=== PATIENT | male | born 1985 | race Caucasian/White ===

== ENCOUNTER 2023-07-23 20:18 | Emergency (ER) | payer OTHER ==
--- NOTE | 2023-07-23 20:47 | ED ---
General Adult HPI - General Chief complaint: Urogenital Stated complaint: genital issue Time Seen by Provider: 07/23/23 20:31 Source: patient Mode of arrival: ambulatory Limitations: no limitations - History of Present Illness Initial comments: Dictation was produced using [employer] dictation software. please excuse any grammatical, word or spelling errors. Chief Complaint: 38-year-old male with left testicular pain History of Present Illness: Patient 38-year-old male presents with left testicular pain he was seen at the urgent care 2 days ago was given antibiotics for a bellybutton infection. States that today he was at work sitting down when all of a sudden he felt a sudden onset of left testicular pain. Patient denies any history of STDs. States that pain is a 6 out of 10. Denies any abdominal pain. No nausea or vomiting. States the pain radiates down his left leg. Initially thought that it was a side effect from the medication he is just already taking. The ROS documented in this emergency department record has been reviewed and confirmed by me. Those systems with pertinent positive or negative responses have been documented in the HPI. All other systems are other negative and/or noncontributory. - Related Data Allergies Allergy/AdvReac Type Severity Reaction Status Date / Time methylphenidate AdvReac Rash/Hives Verified 07/23/23 20:25 [From Ritalin] Review of Systems ROS Statement: Those systems with pertinent positive or pertinent negative responses have been documented in the HPI. ROS Other: All systems not noted in ROS Statement are negative. Past Medical History Past Medical History: No Reported History Past Surgical History: No Surgical Hx Reported Past Psychological History: No Psychological Hx Reported Smoking Status: Vaper Past Alcohol Use History: Daily Past Drug Use History: Marijuana General Exam - General Exam Comments Initial Comments: General: Well-appearing, nontoxic, no acute distress. Head: Normocephalic, atraumatic Eyes: PERRLA, EOMI ENT: Airway patent Chest: Nonlabored breathing Skin: No visual rash, normal skin tone Neuro: Alert and oriented 3 Musculoskeletal: No gross abnormalities General exam: Horizontal lie to the left testicle, palpable tenderness to the left testicle Limitations: no limitations Course Vital Signs 07/23/23 07/23/23 20:21 21:22 Temperature 98.1 F Pulse Rate 64 60 Respiratory 20 16 Rate Blood Pressure 150/92 136/86 O2 Sat by Pulse 100 99 Oximetry Medical Decision Making - Medical Decision Making Was pt. sent in by a medical professional or institution (MARIA L Frazier, COUPLER, urgent care, hospital, or senior living...) When possible be specific @ -No Did you speak to anyone other than the patient for history (EMS, parent, family, police, friend...)? What history was obtained from this source @ -No Did you review nursing and triage notes (agree or disagree)? Why? @ -I reviewed and agree with nursing and triage notes Were old charts reviewed (outside hosp., previous admission, EMS record, old EKG, old radiological studies, urgent care reports/EKG's, senior living records)? Report findings @ -No old charts were reviewed Differential Diagnosis (chest pain, altered mental status, abdominal pain women, abdominal pain men, vaginal bleeding, musculoskeletal, weakness, fever, dyspnea, syncope, headache, dizziness, GI bleed, back pain, seizure, CVA, palpatations, mental health)? @ -Epididymitis, testicular torsion, hydrocele EKG interpreted by me (3pts min.). @ -None done X-rays interpreted by me (1pt min.). @ -None done CT interpreted by me (1pt min.). @ -None done U/S interpreted by me (1pt. min.). @ -Ultrasound scrotum shows good blood flow to both testicles What testing was considered but not performed or refused? (CT, X-rays, U/S, labs)? Why? @ -None What meds were considered but not given or refused? Why? @ -None Did you discuss the management of the patient with other professionals (professionals i.e. MARIA L Frazier, COUPLER, lab, RT, psych nurse, adoption social worker, financial accounting analyst, teacher, admitting officer, welfare case worker)? Give summary @ -No Was smoking cessation discussed for >3mins.? @ -No Was critical care preformed (if so, how long)? @ -No Were there social determinants of health that impacted care today? How? (Homelessness, low income, unemployed, alcoholism, drug addiction, transportation, low edu. Level, literacy, decrease access to med. care, [facility], rehab)? @ -No Was there de-escalation of care discussed even if they declined (Discuss DNR or withdrawal of care, Hospice)? DNR status @ -No What co-morbidities impacted this encounter? (DM, HTN, Smoking, COPD, CAD, Cancer, CVA, ARF, Chemo, Hep., AIDS, mental health diagnosis, sleep apnea, morbid obesity)? @ -None Was patient admitted / discharged? Hospital course, mention meds given and route, prescriptions, significant lab abnormalities, going to OR and other pertinent info. @ -38-year-old male presents emergency department with several hours of left testicular pain. Vital signs stable. Ultrasound shows no testicular torsion. There does appear to be small hydrocele and varicocele on the left. Patient discharged advised follow-up with urologist. Undiagnosed new problem with uncertain prognosis? @ -No Drug Therapy requiring intensive monitoring for toxicity (Heparin, Nitro, Insulin, Cardizem)? @ -No Were any procedures done? @ -No Diagnosis/symptom? Acute, or Chronic, or Acute on Chronic? Uncomplicated (without systemic symptoms) or Complicated (systemic symptoms)? @ -Testicular pain Side effects of treatment? @ -No Exacerbation, Progression, or Severe Exacerbation? @ -No Poses a threat to life or bodily function? How? (Chest pain, [place], [place], pneumonia, PE, COPD, DKA, ARF, appy, cholecystitis, CVA, Diverticulitis, Homicidal, Suicidal, threat to staff... and all critical care pts) @ -No Disposition Clinical Impression: Testicular pain Disposition: HOME SELF-CARE Condition: Fair Instructions (If sedation given, give patient instructions): Testicle Pain (ED) Is patient prescribed a controlled substance at d/c from ED?: No Referrals: Jermaine Jenkins MD [STAFF PHYSICIAN] - 1-2 days Time of Disposition: 22:19
[2023-07-23 21:02] VITALS: TEMP 98.1
--- NOTE | 2023-07-23 21:43 | US ---
EXAMINATION TYPE: US scrotum with doppler. Grayscale and color Doppler Duplex imaging performed of ana fallon scrotum. DATE OF EXAM: 07/23/2023 COMPARISON: NONE CLINICAL INDICATION: Male, 38 years old with history of left testicular pain; Left testicular pain x 6 hours EXAM MEASUREMENTS: TESTICLES: Right Testicle: 4.8 x 3.2 x 2.4 cm Left Testicle: 4.4 x 3.0 x 2.7 cm EPIDIDYMIS HEAD: Right Epididymis: 0.9 cm Left Epididymis: 1.0 cm Doppler performed to assess for testicular vascularity; good bilateral Doppler perfusion and waveform s are demonstrated, with perhaps slightly greater perfusion on the left. There is no evidence of test icular torsion. Presence of hydroceles: Small on left. Presence of varicoceles: Small on left. IMPRESSION: Negative for testicular torsion.
[2023-07-23 21:53] VITALS: PULSE 60; RESP 16
[2023-07-23 22:51] LABS: Appearance,Urine Clear (Clear); Bilirubin,Urine Negative (Negative); Blood,Urine Negative (Negative); Color,Urine Colorless; Glucose,Urine (UA) Negative (Negative); Ketones,Urine Negative (Negative); Leukocyte Esterase,Urine Negative (Negative); Nitrite,Urine Negative (Negative); PH, Urine 6.5 (5.0-8.0); Protein,Urine Negative (Negative); Specific Gravity,Urine 1.005 (1.001-1.035); Urobilinogen,Urine <2.0 mg/dL (<2.0)
[2023-07-23 23:32] VITALS: BP 131/94
== END 2023-07-23 22:52 | disposition home or self-care (01) ==
LOC: EC 20:18
DX: N50.812 Left testicular pain (principal); N43.3 Hydrocele, unspecified; I86.1 Scrotal varices; F17.290 Nicotine dependence, other tobacco product, uncomplicated; F12.90 Cannabis use, unspecified, uncomplicated; Z88.8 Allergy status to other drugs, medicaments and biological substances
CPT/HCPCS: 76870; 81003; 93975; 99284

== ENCOUNTER 2023-11-27 23:41 | Emergency (ER) | payer OTHER ==
--- NOTE | 2023-11-28 00:42 | ED ---
General Adult HPI - General Chief complaint: GI Bleed Stated complaint: Blood in Stool,Near Syncope,Abd Pain Time Seen by Provider: 11/28/23 00:32 Source: patient Mode of arrival: ambulatory Limitations: no limitations - History of Present Illness Initial comments: Patient is a 38-year-old gentleman presenting today status post colonoscopy for bloody stools. Patient states that he had a colonoscopy done at [facility] this afternoon and upon arriving home had a large volume bloody stool with blood clots. He had 3 additional bloody stools but states by the fourth 1 he seem to be passing less blood. He was sitting at home and had a brief syncopal episode while seated, states that this has happened before when he is lost blood such as when he cut his hand. He currently denies any chest pain, shortness of breath lightheadedness or dizziness. Endorses lower abdominal pain as well as rectal pain. No history of easy bleeding or bruising. No fevers. During his colonoscopy today he did have a large polyp removed and a lymph node removed. - Related Data Allergies Allergy/AdvReac Type Severity Reaction Status Date / Time methylphenidate AdvReac Rash/Hives Verified 11/27/23 23:48 [From Ritalin] Review of Systems ROS Statement: Those systems with pertinent positive or pertinent negative responses have been documented in the HPI. ROS Other: All systems not noted in ROS Statement are negative. Constitutional: Denies: fever, chills Respiratory: Denies: dyspnea Cardiovascular: Reports: syncope. Denies: chest pain Gastrointestinal: Reports: abdominal pain, nausea, hematochezia. Denies: vomiting, diarrhea, constipation, hematemesis Neurological: Denies: headache, vertigo Hematological/Lymphatic: Denies: easy bleeding, easy bruising Past Medical History Past Medical History: No Reported History Additional Past Medical History / Comment(s): Mass and Polyp removed from colon 11-27-23. History of Any Multi-Drug Resistant Organisms: None Reported Past Surgical History: No Surgical Hx Reported Past Psychological History: No Psychological Hx Reported Smoking Status: Vaper Past Alcohol Use History: Daily Past Drug Use History: Marijuana General Exam - General Exam Comments Initial Comments: PE: CONSTITUTIONAL: No apparent distress, well appearing SKIN: Warm, dry, no jaundice, hives or petechiae; generalized pallor EYES: Pupils are equally round, extraocular movements intact without nystagmus, pale conjunctiva conjunctiva, non-icteric sclera HENT: Normocephalic, atraumatic, moist mucus membranes, oropharynx clear without exudates NECK: , Full range of motion, normal appearance PULMONARY: Clear to auscultation without wheezes, rhonchi, or rales, normal excursion, no accessory muscle use and no stridor CARDIOVASCULAR: Regular rate, rhythm, normal S1 and S2. No appreciated murmurs, rubs or gallops. Strong radial pulses with intact distal perfusion. No lower extremity edema GASTROINTESTINAL: Soft, non-tender, non-distended, no palpable masses, no rebound or guarding. No hepatosplenomegaly; rectal exam performed with DEBBIE Cruz at bedside, tenderness with digital rectal exam without fissures or active bleeding, small mount of dried blood around rectum GENITOURINARY: MUSCULOSKELETAL: Extremities have no gross deformity, no edema, redness, or swelling. No calf swelling NEUROLOGIC:_a/o x 3, GCS 15, normal mentation and speech. Moves all extremities x 4 without motor or sensory deficit PSYCHIATRIC:_normal mood and affect, thought process is clear and linear Limitations: no limitations Course Vital Signs 11/27/23 11/28/23 11/28/23 23:43 03:18 05:03 Temperature 97 F L 97.7 F Pulse Rate 57 L 84 57 L Respiratory 16 16 17 Rate Blood Pressure 128/68 104/67 122/78 O2 Sat by Pulse 100 96 99 Oximetry EKG Findings - EKG Comments: EKG Findings:: Sinus bradycardia, heart rate 58 bpm, VA interval 139 ms, QT/QTc 313/410 ms, normal axis, no ST elevations or depressions, no arrhythmia Medical Decision Making - Medical Decision Making Was pt. sent in by a medical professional or institution (, PA, SIX PACK PACKER, urgent care, hospital, or prison...) When possible be specific @ -No Did you speak to anyone other than the patient for history (EMS, parent, family, police, friend...)? What history was obtained from this source @ -No Did you review nursing and triage notes (agree or disagree)? Why? @ -I reviewed and agree with nursing and triage notes Were old charts reviewed (outside hosp., previous admission, EMS record, old EKG, old radiological studies, urgent care reports/EKG's, prison records)? Report findings @I did review patient's discharge summary from [facility], as well as report from his colonoscopy today which did show that patient had a large polyp removed from the distal colon 5 to 10 mm/centimeters from the anal verge and lymph node removal. Differential Diagnosis (chest pain, altered mental status, abdominal pain women, abdominal pain men, vaginal bleeding, weakness, fever, dyspnea, syncope, headache, dizziness, GI bleed, back pain, seizure, CVA, palpatations, mental health, musculoskeletal)? @ -Differential GI Bleed: Esophageal varices, aortoenteric fistula, Dary-Núñez, gastritis, peptic ulcer disease, diverticulosis, inflammatory bowel disease, hemorrhoids, fissure, colitis, malignancy, Meckel's diverticulum, this is not meant to be an all- inclusive list. EKG interpreted by me (3pts min.). @ -As above X-rays interpreted by me (1pt min.). @ -None done CT interpreted by me (1pt min.). @ -I reviewed patient CT abdomen I see no active contrast extravasation, free air or obstruction U/S interpreted by me (1pt. min.). @ -None done What testing was considered but not performed or refused? (CT, X-rays, U/S, labs)? Why? @ -None What meds were considered but not given or refused? Why? @ -None Did you discuss the management of the patient with other professionals (professionals i.e. , PA, SIX PACK PACKER, lab, RT, psych nurse, social media marketing manager, dye winch operator, teacher, geological technical officer, case briefer)? Give summary @ -No Was smoking cessation discussed for >3mins.? @ -No Was critical care preformed (if so, how long)? @ -No Were there social determinants of health that impacted care today? How? (Homelessness, low income, unemployed, alcoholism, drug addiction, transportation, low edu. Level, literacy, decrease access to med. care, longterm, rehab)? @ -No Was there de-escalation of care discussed even if they declined (Discuss DNR or withdrawal of care, Hospice)? @ -No What co-morbidities impacted this encounter? (DM, HTN, Smoking, COPD, CAD, Cancer, CVA, ARF, Chemo, Hep., AIDS, mental health diagnosis, sleep apnea, morb id obesity)? @ -None Was patient admitted / discharged? Hospital course, mention meds given and rout e, prescriptions, significant lab abnormalities, going to OR and other pertinent info. @ -Hospital course Diischarged- Patient is a pleasant 38-year-old gentleman presenting status post colonoscopy status post polypectomy and lymph node removal for 4 episodes bloody stool and lower abdominal pain as well as syncope. Pt somewhat pale and ill appearing however nontoxic on arrival. Conjucitval pallor noted. Soft and nontender abdomen with active bowel sounds. Rectal exam showed no active or brisk bleeding, no palpable masses, no anal fissures, performed with RN Anthony as solar pv installer. VSS, no tachycardia, hypoxia or hypotension. Plan for fluid resuscitation, type and cross, CBC, CMP, CT GI bleed study. Hgb 14.6. Labs otherwise significant for sodium 129. Pt recieved litre normal saline. I did update pt's mother to stable hgb and pending CT. Patient sleeping comfortably. Lactiic 2/[address] significant for "fluid and gas filled dilated large bowel loops, liquid stool is seen in the ascending colon, abnormal circumferential wall thickening of the distal sigmoid colon us seen with near complete luminal narrowing, since differential dx includes malignancy, follow up with colonoscopy recommended if clinically appropriate time. Abnormal trace free fluid in pelvis". Of note no f ree air. I suspect findings are chronic, as concern for malignancy was the cause of patient's colonoscopy today, however updated patient and mother to findings and discussed transfer for obs vs discharge. I discussed with the patient discharge home with strict return precautions and close follow up with his dry cell and battery assembler vs transfer to [facility] for observation given his recent procedure. Patient states he feels improved, has not had any bloody stools while here in the ED and wants to be discharged home. I feel this is reasonable given normal hgb and improvement of symptoms and patient has close follow up established and in place for this week. In my medical judgment there is currently no evidence of an immediate life- threatening or surgical condition. Discharge is therefore indicated at this time. Discharge treatment instructions, follow up instructions, and appropriate [facility] department return precautions were discussed with the patient and/or medical decision maker. Patient and/or medical decision maker expressed understanding of and agreed with the treatment plan, follow up instructions, and emergency department return precaution. All patient's and/or medical decision maker's questions were answered. The patient was advised that a small risk still exists that a serious condition could develop and was therefore instructed to return to the ED for any changes in symptoms, persistent symptoms, inability to obtain proper follow-up or for any further concerns. Patient received verbal and written instructions for this condition. Undiagnosed new problem with uncertain prognosis? @ -No Drug Therapy requiring intensive monitoring for toxicity (Heparin, Nitro, Insulin, Cardizem)? @ -No Were any procedures done? @ -No Diagnosis/symptom? @Hematochezia, hyponatremia Acute, or Chronic, or Acute on Chronic? @ -Acute Uncomplicated (without systemic symptoms) or Complicated (systemic symptoms)? @ -Complicated Side effects of treatment? @ -No Exacerbation, Progression, or Severe Exacerbation? @ -No Poses a threat to life or bodily function? How? (Chest pain, [place], [place], pneumonia, PE, COPD, DKA, ARF, appy, cholecystitis, CVA, Diverticulitis, Homicidal, Suicida l, threat to staff... and all critical care pts) @ -Potentially, however unlikely at time of discharge - Lab Data Result diagrams: 11/28/23 00:40 11/28/23 00:40 Lab Results 11/28/23 11/28/23 11/28/23 Range/Units 00:35 00:40 00:40 WBC 7.2 (3.8-10.6) k/uL RBC 4.61 (4.30-5.90) m/uL Hgb 14.6 (13.0-17.5) gm/dL Hct 42.1 (39.0-53.0) % MCV 91.5 (80.0-100.0) fL MCH 31.7 (25.0-35.0) pg MCHC 34.7 (31.0-37.0) g/dL RDW 12.2 (11.5-15.5) % Plt Count 303 (150-450) k/uL MPV 9.4 Neutrophils % 72 % Lymphocytes % 21 % Monocytes % 5 % Eosinophils % 1 % Basophils % 0 % Neutrophils # 5.1 (1.3-7.7) k/uL Lymphocytes # 1.5 (1.0-4.8) k/uL Monocytes # 0.4 (0-1.0) k/uL Eosinophils # 0.1 (0-0.7) k/uL Basophils # 0.0 (0-0.2) k/uL PT 11.0 (10.0-12.5) sec INR 1.0 (<1.2) APTT 22.1 (22.0-30.0) sec Sodium (137-145) mmol/L Potassium (3.5-5.1) mmol/L Chloride (98-107) mmol/L Carbon Dioxide (22-30) mmol/L Anion Gap mmol/L BUN (9-20) mg/dL Creatinine (0.66-1.25) mg/dL Est GFR (CKD-EPI)AfAm (>60 ml/min/1.73 sqM) Est GFR (CKD-EPI)NonAf (>60 ml/min/1.73 sqM) Glucose (74-99) mg/dL Lactic Ac Sepsis Rflx Plasma Lactic Acid Bobby (0.7-2.0) mmol/L Calcium (8.4-10.2) mg/dL Total Bilirubin (0.2-1.3) mg/dL AST (17-59) U/L ALT (4-49) U/L Alkaline Phosphatase (38-126) U/L Total Protein (6.3-8.2) g/dL Albumin (3.5-5.0) g/dL Blood Type A Negative Blood Type Confirm Blood Type Recheck No Previous Record Bld Type Recheck Status CABO Indicated Antibody Screen NEGATIVE Spec Expiration Date 12/01/2023233911/28/23 11/28/23 11/28/23 Range/Units 00:40 00:40 00:40 WBC (3.8-10.6) k/uL RBC (4.30-5.90) m/uL Hgb (13.0-17.5) gm/dL Hct (39.0-53.0) % MCV (80.0-100.0) fL MCH (25.0-35.0) pg MCHC (31.0-37.0) g/dL RDW (11.5-15.5) % Plt Count (150-450) k/uL MPV Neutrophils % % Lymphocytes % % Monocytes % % Eosinophils % % Basophils % % Neutrophils # (1.3-7.7) k/uL Lymphocytes # (1.0-4.8) k/uL Monocytes # (0-1.0) k/uL Eosinophils # (0-0.7) k/uL Basophils # (0-0.2) k/uL PT (10.0-12.5) sec INR (<1.2) APTT (22.0-30.0) sec Sodium 129 L (137-145) mmol/L Potassium 3.9 (3.5-5.1) mmol/L Chloride 104 (98-107) mmol/L Carbon Dioxide 28 (22-30) mmol/L Anion Gap -3 mmol/L BUN 7 L (9-20) mg/dL Creatinine 0.91 (0.66-1.25) mg/dL Est GFR (CKD-EPI)AfAm >90 (>60 ml/min/1.73 sqM) Est GFR (CKD-EPI)NonAf >90 (>60 ml/min/1.73 sqM) Glucose 127 H (74-99) mg/dL Lactic Ac Sepsis Rflx Plasma Lactic Acid Bobby 2.2 H* (0.7-2.0) mmol/L Calcium 9.5 (8.4-10.2) mg/dL Total Bilirubin 0.7 (0.2-1.3) mg/dL AST 21 (17-59) U/L ALT 12 (4-49) U/L Alkaline Phosphatase 53 (38-126) U/L Total Protein 6.1 L (6.3-8.2) g/dL Albumin 4.3 (3.5-5.0) g/dL Blood Type Blood Type Confirm A Negative Blood Type Recheck Bld Type Recheck Status Antibody Screen Spec Expiration Date 11/28/23 11/28/23 Range/Units 02:58 03:55 WBC (3.8-10.6) k/uL RBC (4.30-5.90) m/uL Hgb (13.0-17.5) gm/dL Hct (39.0-53.0) % MCV (80.0-100.0) fL MCH (25.0-35.0) pg MCHC (31.0-37.0) g/dL RDW (11.5-15.5) % Plt Count (150-450) k/uL MPV Neutrophils % % Lymphocytes % % Monocytes % % Eosinophils % % Basophils % % Neutrophils # (1.3-7.7) k/uL Lymphocytes # (1.0-4.8) k/uL Monocytes # (0-1.0) k/uL Eosinophils # (0-0.7) k/uL Basophils # (0-0.2) k/uL PT (10.0-12.5) sec INR (<1.2) APTT (22.0-30.0) sec Sodium (137-145) mmol/L Potassium (3.5-5.1) mmol/L Chloride (98-107) mmol/L Carbon Dioxide (22-30) mmol/L Anion Gap mmol/L BUN (9-20) mg/dL Creatinine (0.66-1.25) mg/dL Est GFR (CKD-EPI)AfAm (>60 ml/min/1.73 sqM) Est GFR (CKD-EPI)NonAf (>60 ml/min/1.73 sqM) Glucose (74-99) mg/dL Lactic Ac Sepsis Rflx Y Plasma Lactic Acid Bobby 0.6 L (0.7-2.0) mmol/L Calcium (8.4-10.2) mg/dL Total Bilirubin (0.2-1.3) mg/dL AST (17-59) U/L ALT (4-49) U/L Alkaline Phosphatase (38-126) U/L Total Protein (6.3-8.2) g/dL Albumin (3.5-5.0) g/dL Blood Type Blood Type Confirm Blood Type Recheck Bld Type Recheck Status Antibody Screen Spec Expiration Date Disposition Clinical Impression: Hematochezia, Hyponatremia Disposition: HOME SELF-CARE Condition: Stable Instructions (If sedation given, give patient instructions): Gastrointestinal Bleeding (ED) Additional Instructions: Every disease is a spectrum and a small chance still exists that a serious condition could develop, for this reason, please monitor yourself closely for new, changing or worsening symptoms, further episodes of bloody stools where you pass more than 1 to 2 tablespoons of blood or blood clots more than once, lightheadedness or dizziness, shortness of breath, additional episodes of passing out, return of rectal or abdominal pain, fever, inability to tolera te/keep down fluids or your medications, inability to follow up with outpatient providers as instructed and should you experience these symptoms or should you have any further concerns for your wellbeing please return to the ED or call 911 immediately. Please follow up with your dry cell and battery assembler as soon as possible. Please increase your salt intake over the next 2 days. PLEASE call your primary care physician as soon as possible to arrange / discuss plan for followup appointment. Appointment in the next 1-3 days is strongly encouraged if possible. Please help with your primary care provider regarding clearance to resume driving given your syncopal episode today. [facility] law states that you are unable to drive or operate heavy machinery for 6 months after seizure or syncopal event. Please follow-up with your PCP for clearance. PLEASE let us know here before you leave if there is anything further we can do to be of any assistance. Take care and feel Better! Is patient prescribed a controlled substance at d/c from ED?: No Referrals: None,Stated [Primary Care Provider] - 1-2 days
[2023-11-28] MEDS: ONDANSETRON 4 MG/2 ML VIAL IVP STA (00:54)
[2023-11-28] MEDS: SODIUM CHLORIDE 0.9% 1,000 ML IV STA (00:54)
[2023-11-28] MEDS: MORPHINE SULFATE 4 MG/ML SYRINGE IVP STA (00:57)
[2023-11-28 01:47] LABS: Partial Thromboplastin Time 22.1 sec (22.0-30.0)
[2023-11-28 01:53] LABS: ALT 12 U/L (4-49); AST 21 U/L (17-59); African American GFR (CKD) >90 (>60 ml/min/1.73 sqM); Albumin 4.3 g/dL (3.5-5.0); Alkaline Phosphatase 53 U/L (38-126); Anion Gap -3 mmol/L; Blood Urea Nitrogen 7 mg/dL (9-20); Calcium 9.5 mg/dL (8.4-10.2); Carbon Dioxide 28 mmol/L (22-30); Chloride 104 mmol/L (98-107); Glucose 127 mg/dL (74-99); Non-African American GFR(CKD) >90 (>60 ml/min/1.73 sqM); Potassium 3.9 mmol/L (3.5-5.1); Sodium 129 mmol/L (137-145); Total Bilirubin 0.7 mg/dL (0.2-1.3); Total Protein 6.1 g/dL (6.3-8.2)
[2023-11-28 02:19] LABS: Basophils % (A) 0 %; Eosinophils # (A) 0.1 k/uL (0-0.7); Eosinophils % (A) 1 %; HCT 42.1 % (39.0-53.0); HGB 14.6 gm/dL (13.0-17.5); Lymphocytes # (A) 1.5 k/uL (1.0-4.8); Lymphocytes % (A) 21 %; MCH 31.7 pg (25.0-35.0); MCHC 34.7 g/dL (31.0-37.0); MCV 91.5 fL (80.0-100.0); Mean Platelet Volume 9.4; Monocytes # (A) 0.4 k/uL (0-1.0); Monocytes % (A) 5 %; Neutrophils # (A) 5.1 k/uL (1.3-7.7); Neutrophils % (A) 72 %; Platelet Count 303 k/uL (150-450); RBC 4.61 m/uL (4.30-5.90); RDW 12.2 % (11.5-15.5); WBC 7.2 k/uL (3.8-10.6)
--- NOTE | 2023-11-28 04:30 | CT ---
EXAM: CT Abdomen and Pelvis With Intravenous Contrast CLINICAL HISTORY: ITS.REASON CT Reason: GI bleed TECHNIQUE: Axial computed tomography images of the abdomen and pelvis with intravenous contrast. CTDI is 13.1 mGy and DLP is 665.6 mGy-cm. This CT exam was performed using one or more of the following dose reduction techniques: automated exposure control, adjustment of the mA and/or kV according to patient size, and/or use of iterative reconstruction technique. COMPARISON: None. FINDINGS: Lung bases: Posteriorly subpleural linear/curvilinear atelectasis RT>LT. No mass. No consolidation. ABDOMEN: Liver: Unremarkable. No mass. Gallbladder and bile ducts: Unremarkable. No calcified stones. No ductal dilation. Pancreas: Unremarkable. No mass. Very mild ductal dilation. Spleen: Unremarkable. No splenomegaly. Adrenals: Unremarkable. No mass. Kidneys and ureters: Both kidneys of normal size and morphology. No solid mass. No hydronephrosis. Stomach and bowel: Fluid-filled normal-caliber small intestine. Fluid and gas filled mildly dilated large bowel loops. There is approximately 5.5 cm long abnormal wall thickening of the distal sigmoid is seen with near luminal narrowing/near obstruction (series 201 image 69, series 202 image 56). PELVIS: Appendix: Normal appendix. Bladder: A distended urinary bladder. No mass. Reproductive: Unremarkable as visualized. ABDOMEN and PELVIS: Intraperitoneal space: Unremarkable. No free air. Abnormal trace free fluid present dependently in the pelvis (series 201 image 71). Bones/joints: No acute fracture. No dislocation. Soft tissues: Unremarkable. Vasculature: Unremarkable. No abdominal aortic aneurysm. Lymph nodes: Unremarkable. No enlarged lymph nodes.. IMPRESSION: Fluid and gas filled mildly dilated large bowel loops. Liquid stool is seen in the ascending colon. Abnormal circumferential wall thickening of the distal sigmoid colon is seen with near complete luminal narrowing. Since differential diagnosis includes malignancy, follow-up with colonoscopy recommended at clinically appropriate time. Abnormal trace free fluid is seen dependently in the pelvis. .
[2023-11-28 05:03] VITALS: BP 122/78; PULSE 57; RESP 17; TEMP 97.7
== END 2023-11-28 05:09 | disposition home or self-care (01) ==
LOC: EC 23:41
CPT/HCPCS: 36415; 74177; 80053; 83605; 85025; 85610; 85730; 86850; 86900; 86901; 93005; 96361; 96374; 96375; 99285

== ENCOUNTER → 2024-03-21 | Outpatient (CLI) | payer OTHER ==
[2024-03-21 16:22] LABS: African American GFR (CKD) >90 (>60 ml/min/1.73 sqM); Blood Urea Nitrogen 9 mg/dL (9-20); Non-African American GFR(CKD) >90 (>60 ml/min/1.73 sqM)
--- NOTE | 2024-03-21 17:58 | CT ---
EXAMINATION TYPE: CT ChestAbdPelvis w con DATE OF EXAM: 03/21/2024 5:30 PM COMPARISON: None. CLINICAL INDICATION: Male, 38 years old with history of C20 RECTAL CANCER; PHH, rectal ca Technique: CT ChestAbdPelvis w con; Multiple axial images were obtained. Two-dimensional coronal and sagittal reconstructions were obtained. Contrast used:100ml mL of Isovue 300 with IV Contrast, (None if empty) Oral contrast used: without Oral Contrast CT DLP: 546.5 mGycm, Automated exposure control for dose reduction was used. Findings: CHEST: LUNGS/ PLEURA: No focal consolidation, pneumothorax or pleural effusion. AIRWAY: Patent and unremarkable. HEART: Size within normal limits. MEDIASTINUM: No gross evidence of adenopathy. VASCULATURE: No aortic aneurysm. MUSCULOSKELETAL: No acute osseous abnormalities. SOFT TISSUES/LYMPH NODES: Unremarkable. LOWER NECK: No significant findings. ABDOMEN: ABDOMEN LIVER: Unremarkable GALLBLADDER AND BILE DUCTS: Unremarkable. PANCREAS: Unremarkable. SPLEEN: Unremarkable. ADRENAL GLANDS: Unremarkable. KIDNEYS AND URETERS: No evidence of hydronephrosis or renal calculus. The ureters are unremarkable. PELVIS BLADDER: Unremarkable REPRODUCTIVE: Unremarkable. ABDOMEN & PELVIS STOMACH AND BOWEL: No evidence of bowel obstruction. There remains some slight eccentric right hse specialist ior wall thickening in the area of prior suspected malignancy. Multiple thickening measuring up to 8 mm previously 17. PERITONEUM/RETROPERITONEUM: No evidence of pneumoperitoneum or free fluid. VASCULATURE: No evidence of aortic aneurysm. MUSCULOSKELETAL: No acute osseous abnormalities LYMPH NODES: No gross evidence for lymphadenopathy. SOFT TISSUE/ABDOMINAL WALL: Unremarkable IMPRESSION: Posttreatment changes to the rectum. There remains mild eccentric right rectal wall thickening. No ev idence for lymphadenopathy at this time no other signs of metastatic disease. Attention on follow-up imaging. [facility], , 03/21/2024 5:55 PM
== END | disposition home or self-care (01) ==
LOC: RADCTMAIN 15:40
PROVIDERS: ATTEND Internal Medicine
DX: C20 Malignant neoplasm of rectum (principal); Z71.3 Dietary counseling and surveillance; Z98.890 Other specified postprocedural states
CPT/HCPCS: 82565; 84520; 71260; 74177; 36415; Q9967

== ENCOUNTER 2024-03-28 12:13 | Day surgery (SDC) | payer OTHER ==
[~2024-03-28 12:13] MED LIST: HYDROmorphone 0.5 MG/0.5 ML SYRINGE IVP PRN; LACTATED RINGERS 1,000 ML IV SCH; LIDOCAINE 1% (10MG/ML) FOR IV START INTRADERMA PRN; Pre Op ABX Message 1 EACH MISC MISCELLANE ONE; fentaNYL (PF) 50 MCG/ML 2 ML AMP IVP PRN
[2024-03-28] MEDS: IV FLUID CONTINUATION 1,000 ML IV ONE (12:29)
[2024-03-28] MEDS: ONDANSETRON 4 MG/2 ML VIAL IVP ONE (12:59)
[2024-03-28] MEDS: DEXAMETHASONE SOD PHOSPHATE 4 MG/ML 1 ML VIAL IV ONE (13:00)
[2024-03-28] MEDS: MIDAZOLAM 2 MG/2 ML VIAL IV PRN (13:00)
[2024-03-28] MEDS ORDERED: LIDOCAINE 1% INJ 10MG/ML (20 ML MDV) ONE (13:14)
[2024-03-28] MEDS ORDERED: ceFAZolin 1 GM/50 ML BAG (PMX) ONE (13:14)
[2024-03-28] MEDS ORDERED: PROPOFOL 10 MG/ML 20 ML VIAL IV ONE (13:14)
[2024-03-28] MEDS ORDERED: fentaNYL (PF) 50 MCG/ML 2 ML AMP ONE (13:14)
[2024-03-28] MEDS: SODIUM CHLORIDE 0.9% 100 ML with ceFAZolin 2,000 MG IV ONE (13:17)
[2024-03-28] MEDS: BUPIVACAINE (PF) 0.25% 30 ML VIAL SQ ONE ×2 (13:33)
[2024-03-28] MEDS: HEPARIN SODIUM,PORCINE 100 UNIT/ML 5 ML VIAL IV ONE (13:46)
--- NOTE | 2024-03-28 14:09 | FL ---
Intraoperative/procedural fluoroscopic services were provided for right chest wall subclavian approac h Port-A-Cath insertion. Distal tip appears to be in the region of the mid SVC. Total fluoroscopy heidy e is 9 seconds with a total of 4 submitted images to PACS. Total DAP 0.2472 Gycm2. Please see the op erative note for further details. [facility], , 03/28/2024 2:07 PM
--- NOTE | 2024-03-28 14:09 | P.OP ---
Date of Procedure: 03/28/24 Preoperative Diagnosis: Rectal cancer Postoperative Diagnosis: Rectal cancer Procedure(s) Performed: Mediport placement with fluoroscopic guidance Anesthesia: TRENT Surgeon: Janice Jenkins Pathology: none sent Condition: stable Disposition: same day Indications for Procedure: 38-year-old male with recent diagnosis of rectal carcinoma. After discussion with oncology, he is opted for induction of chemotherapy. Secondary to this, plan is for Mediport placement. Risks, benefits and alternatives including risks of pneumothorax and bleeding were discussed with the patient. He is agreeable with the plan of Mediport placement. Operative Findings: Appropriate flush and withdrawal from Mediport site Description of Procedure: Patient was brought to the operating suite and placed in supine position on the operating table. Sedation was provided by anesthesia and the patient underwent endotracheal intubation. Patient was then prepped and draped in regular sterile fashion. Local anesthetic was administered and the right subclavian vein was entered on first attempt. Guidewire was then placed and location was confirmed under fluoroscopic guidance. At this point local anesthetic was administered to create the pocket for the port. Incision was made and dissection was carried to the prepectoralis fascia. Dissection was carried to free up space for the port. At this point a small incision was made at the guidewire insertion site and a tunnel was created between this guidewire site and the pocket and catheter was placed. Dilator sheath was then placed over the guidewire under fluoroscopic guidance and catheter was then placed. Catheter was noted to be in appropriate position and was connected to the port and port was placed in the pocket. Appropriate flush and withdrawal was noted from the port site. The port was then secured to the prepectoralis fascia in 2 separate locations. Fluoroscopic guidance confirmed location with no kinks in the catheter. Heparin lock was placed. The wound was then closed in layers with 3-0 Vicryl and 4-0 Vicryl subcuticular suture. Sterile dressing was applied. The patient was then taken to postanesthesia care unit in stable condition with pending chest x-ray.
[2024-03-28 14:11] VITALS: TEMP 97.1
--- NOTE | 2024-03-28 14:58 | XR ---
EXAMINATION TYPE: XR chest 1V confirm line plcmt DATE OF EXAM: 03/28/2024 2:44 PM COMPARISON: CT chest abdomen and pelvis 03/21/2024, fluoroscopic images 03/28/2024 TECHNIQUE: XR chest 1V confirm line plcmt Portable AP radiograph of the chest. CLINICAL INDICATION:Male, 38 years old with history of Mediport; FINDINGS: Lungs/Pleura: There is no evidence of pleural effusion, focal consolidation, or pneumothorax. Pulmonary vascularity: Unremarkable. Heart/mediastinum: Cardiomediastinal silhouette is unremarkable. Musculoskeletal: No acute osseous pathology. Other findings: None Lines/Tubes: Interval placement of Mediport projecting over the right hemithorax with distal tip projecting over t he superior vena cava. Subclavian approach. IMPRESSION: Interval placement of right chest wall Mediport with distal tip projecting over the superior vena cav a. No pneumothorax. [facility], , 03/28/2024 2:55 PM
[2024-03-28 14:59] VITALS: BP 107/70; PULSE 57; RESP 18
== END 2024-03-28 15:43 | disposition home or self-care (01) ==
LOC: OR 12:13
PROVIDERS: ATTEND Surgery
DX: C20 Malignant neoplasm of rectum (principal); F17.290 Nicotine dependence, other tobacco product, uncomplicated; Z98.890 Other specified postprocedural states; Z88.8 Allergy status to other drugs, medicaments and biological substances
CPT/HCPCS: 77001; 36561; C1788; J2250; J1642; J1100; J2405; J0690 ×2; J2003; J3010; J2704; J0665

== ENCOUNTER 2024-05-09 15:05 | Emergency (ER) | payer OTHER ==
[2024-05-09 15:15] VITALS: TEMP 98.3
--- NOTE | 2024-05-09 15:25 | ED ---
General Adult HPI - General Chief complaint: Weakness Stated complaint: abn labs Time Seen by Provider: 05/09/24 15:20 Source: patient, RN notes reviewed Mode of arrival: ambulatory Limitations: no limitations - History of Present Illness Initial comments: This is a 38-year-old male with colorectal cancer, currently on chemotherapy, presents to the emergency department for complaints of generalized weakness. Patient states that he started chemotherapy in March and has undergone 3 sessions, with his last session being 1 week ago, and has been experiencing generalized weakness. Endorses nausea, vomiting, abdominal pain, diarrhea. Denies hememesis, hematochezia or melena. Denies chest pain or difficulty breathing. Follows with Dr. Holly with upcoming appointment on 05/11/2024. - Related Data Previous Rx's Medication Instructions Recorded Ondansetron Odt [Zofran Odt] 4 mg PO Q8HR PRN #10 tab 05/09/24 Allergies Allergy/AdvReac Type Severity Reaction Status Date / Time amphetamine [From Adderall] Allergy Rash/Hives Verified 05/09/24 18:42 dextroamphetamine Allergy Rash/Hives Verified 05/09/24 18:42 [From Adderall] methylphenidate Allergy Rash/Hives Verified 05/09/24 18:42 [From Ritalin] fentanyl AdvReac Nausea & Verified 05/09/24 18:42 Vomiting Review of Systems ROS Statement: Those systems with pertinent positive or pertinent negative responses have been documented in the HPI. ROS Other: All systems not noted in ROS Statement are negative. Past Medical History Past Medical History: No Reported History Additional Past Medical History / Comment(s): Mass and Polyp removed from colon 11-27-23. History of Any Multi-Drug Resistant Organisms: None Reported Past Surgical History: No Surgical Hx Reported Additional Past Surgical History / Comment(s): mediport 03/28/24. rectal CA Past Psychological History: No Psychological Hx Reported Smoking Status: Vaper Past Alcohol Use History: None Reported Past Drug Use History: Marijuana General Exam - General Exam Comments Initial Comments: Visual Physical Exam Vital signs reviewed General: Well-appearing, nontoxic, no acute distress. Head: Normocephalic, atraumatic Eyes: PERRLA, EOMI ENT: Airway patent Chest: Nonlabored breathing Skin: No visual rash, normal skin tone Neuro: Alert and oriented 3 Musculoskeletal: No gross abnormalities Limitations: no limitations General appearance: alert, in no apparent distress Neck exam: Present: normal inspection. Absent: tenderness, meningismus, lymphadenopathy Respiratory exam: Present: normal lung sounds bilaterally. Absent: respiratory distress, wheezes, rales, rhonchi, stridor Cardiovascular Exam: Present: regular rate, normal rhythm, normal heart sounds. Absent: systolic murmur, diastolic murmur, rubs, gallop, clicks GI/Abdominal exam: Present: soft, tenderness (diffuse), normal bowel sounds. Absent: distended, guarding, rebound, rigid Extremities exam: Present: normal inspection, full ROM, normal capillary refill. Absent: tenderness, pedal edema, joint swelling, calf tenderness Back exam: Present: normal inspection Skin exam: Present: warm, dry, intact, normal color. Absent: rash Course Vital Signs 05/09/24 05/09/24 15:13 17:57 Temperature 98.3 F Pulse Rate 84 79 Respiratory 20 16 Rate Blood Pressure 130/91 119/82 O2 Sat by Pulse 99 99 Oximetry Medical Decision Making - Medical Decision Making Was pt. sent in by a medical professional or institution (, PA, FMD TEACHER, urgent care, hospital, or senior care...) When possible be specific @ -No Did you speak to anyone other than the patient for history (EMS, parent, family, police, friend...)? What history was obtained from this source @ -No Did you review nursing and triage notes (agree or disagree)? Why? @ -I reviewed and agree with nursing and triage notes Were old charts reviewed (outside hosp., previous admission, EMS record, old EKG, old radiological studies, urgent care reports/EKG's, senior care records)? Report findings @ -Reviewed CT imaging of the patient's chest, abdomen, pelvis with IV contrast that was completed on 03/21/2024 which revealed posttreatment changes to the rectum with mild eccentric right rectal wall thickening Differential Diagnosis (chest pain, altered mental status, abdominal pain women, abdominal pain men, vaginal bleeding, weakness, fever, dyspnea, syncope, headache, dizziness, GI bleed, back pain, seizure, CVA, palpatations, mental health, musculoskeletal)? @ -Differential Weakness: Hypoglycemia, shock, sepsis, hyponatremia, anemia, infection, AK, ETOH, adverse medicine reaction, overdose, stroke, this is not meant to be an all-inclusive list. EKG interpreted by me (3pts min.). @ -Completed at 1520 sinus rhythm with a ventricular rate of 88, DE interval 128, QRS 82, QTc 393. X-rays interpreted by me (1pt min.). @ -Chest x-ray completed with no acute process CT interpreted by me (1pt min.). @ -None done U/S interpreted by me (1pt. min.). @ -None done What testing was considered but not performed or refused? (CT, X-rays, U/S, labs)? Why? @ -None What meds were considered but not given or refused? Why? @ -None Did you discuss the management of the patient with other professionals (professionals i.e. , PA, FMD TEACHER, lab, RT, psych nurse, social sciences research scientist, account assistant, teacher, systems support officer, case management social worker)? Give summary @ -No Was smoking cessation discussed for >3mins.? @ -No Was critical care preformed (if so, how long)? @ -No Were there social determinants of health that impacted care today? How? (Homelessness, low income, unemployed, alcoholism, drug addiction, transportation, low edu. Level, literacy, decrease access to med. care, care home, rehab)? @ -No Was there de-escalation of care discussed even if they declined (Discuss DNR or withdrawal of care, Hospice)? DNR status @ -No What co-morbidities impacted this encounter? (DM, HTN, Smoking, COPD, CAD, Cancer, CVA, ARF, Chemo, Hep., AIDS, mental health diagnosis, sleep apnea, morb id obesity)? @ -None Was patient admitted / discharged? Hospital course, mention meds given and rout e, prescriptions, significant lab abnormalities, going to OR and other pertinent info. @ -discharged. 38-year-old male presenting to the emergency department for complaint of generalized weakness. Overall patient is well-appearing no signs Distress. Vital stable. Labs remarkable for leukopenia with a white blood cell count of 1.4, electrolytes within normal, chest x-ray is unremarkable. IV evaluation of fluids patient states that he is feeling better and is requesting discharge will follow-up with oncology as scheduled. Strict return parameters have discussed with the patient such as developing any signs or symptoms concerning of a fever provide Emergency Department immediately. Case discussed with Dr. Mejia. Undiagnosed new problem with uncertain prognosis? @ -No Drug Therapy requiring intensive monitoring for toxicity (Heparin, Nitro, Insulin, Cardizem)? @ -No Were any procedures done? @ -No Diagnosis/symptom? @ -Neutropenia, generalized weakness Acute, or Chronic, or Acute on Chronic? @ -Acute Uncomplicated (without systemic symptoms) or Complicated (systemic symptoms)? @ -Complicated Side effects of treatment? @ -No Exacerbation, Progression, or Severe Exacerbation? @ -No Poses a threat to life or bodily function? How? (Chest pain, USA, AK, pneumonia, PE, COPD, DKA, ARF, appy, cholecystitis, CVA, Diverticulitis, Homicidal, Suicidal, threat to staff... and all critical care pts) @ -No - Lab Data Result diagrams: 05/09/24 15:50 05/09/24 15:50 Lab Results 05/09/24 05/09/24 Range/Units 15:50 15:50 WBC 1.4 L* (3.8-10.6) k/uL RBC 4.30 (4.30-5.90) m/uL Hgb 13.6 (13.0-17.5) gm/dL Hct 39.6 (39.0-53.0) % MCV 91.9 (80.0-100.0) fL MCH 31.7 (25.0-35.0) pg MCHC 34.5 (31.0-37.0) g/dL RDW 12.8 (11.5-15.5) % Plt Count 180 (150-450) k/uL MPV 7.9 Neutrophils % (Manual) 40 % Band Neuts % (Manual) 3 % Lymphocytes % (Manual) 50 % Monocytes % (Manual) 7 % Neutrophils # (Manual) 0.60 L (1.3-7.7) k/uL Lymphocytes # (Manual) 0.70 L (1.0-4.8) k/uL Monocytes # (Manual) 0.10 (0-1.0) k/uL Nucleated RBCs 0 (0-0) /100 WBC Manual Slide Review Performed Sodium 136 L (137-145) mmol/L Potassium 4.1 (3.5-5.1) mmol/L Chloride 100 (98-107) mmol/L Carbon Dioxide 26 (22-30) mmol/L Anion Gap 10 mmol/L BUN 17 (9-20) mg/dL Creatinine 0.81 (0.66-1.25) mg/dL Est GFR (CKD-EPI)AfAm >90 (>60 ml/min/1.73 sqM) Est GFR (CKD-EPI)NonAf >90 (>60 ml/min/1.73 sqM) Glucose 103 H (74-99) mg/dL Calcium 9.3 (8.4-10.2) mg/dL Magnesium 2.0 (1.6-2.3) mg/dL Total Bilirubin 1.4 H (0.2-1.3) mg/dL AST 18 (17-59) U/L ALT 17 (4-49) U/L Alkaline Phosphatase 74 (38-126) U/L Total Protein 6.2 L (6.3-8.2) g/dL Albumin 4.3 (3.5-5.0) g/dL Lipase 79 (23-300) U/L Disposition Clinical Impression: Neutropenia, Generalized weakness Disposition: HOME SELF-CARE Condition: Stable Instructions (If sedation given, give patient instructions): Neutropenia (ED) Additional Instructions: Please return to the Emergency Department if symptoms worsen or any other concerns. It is important that you return back to the emergency room for any signs concerning of fever. Follow-up as scheduled with your oncologist on 05/11/2024. Prescriptions: Ondansetron Odt [Zofran Odt] 4 mg PO Q8HR PRN #10 tab PRN Reason: Nausea Is patient prescribed a controlled substance at d/c from ED?: No Referrals: Javed Bowman DO [Primary Care Provider] - 1-2 days Time of Disposition: 18:33
--- NOTE | 2024-05-09 16:08 | XR ---
EXAMINATION TYPE: XR chest 2V DATE OF EXAM: 05/09/2024 4:03 PM COMPARISON: Chest radiographs from 03/28/2024 TECHNIQUE: XR chest 2V Frontal and lateral views of the chest. CLINICAL INDICATION:Male, 38 years old with history of Weakness; FINDINGS: Lungs/Pleura: There is no evidence of pleural effusion, focal consolidation, or pneumothorax. Pulmonary vascularity: Unremarkable. Heart/mediastinum: Cardiomediastinal silhouette is unremarkable. Musculoskeletal: No acute osseous pathology. Other findings: None Lines/Tubes: Stable right chest subclavian approach Mediport catheter distal tip terminating in the mid SVC. IMPRESSION: No acute cardiopulmonary disease/process. [facility], , 05/09/2024 4:05 PM
[2024-05-09 16:26] LABS: ALT 17 U/L (4-49); AST 18 U/L (17-59); African American GFR (CKD) >90 (>60 ml/min/1.73 sqM); Albumin 4.3 g/dL (3.5-5.0); Alkaline Phosphatase 74 U/L (38-126); Anion Gap 10 mmol/L; Blood Urea Nitrogen 17 mg/dL (9-20); Calcium 9.3 mg/dL (8.4-10.2); Carbon Dioxide 26 mmol/L (22-30); Chloride 100 mmol/L (98-107); Glucose 103 mg/dL (74-99); Lipase 79 U/L (23-300); Non-African American GFR(CKD) >90 (>60 ml/min/1.73 sqM); Potassium 4.1 mmol/L (3.5-5.1); Sodium 136 mmol/L (137-145); Total Bilirubin 1.4 mg/dL (0.2-1.3); Total Protein 6.2 g/dL (6.3-8.2)
[2024-05-09 16:39] LABS: HCT 39.6 % (39.0-53.0); HGB 13.6 gm/dL (13.0-17.5); MCH 31.7 pg (25.0-35.0); MCHC 34.5 g/dL (31.0-37.0); MCV 91.9 fL (80.0-100.0); Mean Platelet Volume 7.9; Platelet Count 180 k/uL (150-450); RDW 12.8 % (11.5-15.5)
[2024-05-09 16:46] LABS: WBC 1.4 k/uL (3.8-10.6)
[2024-05-09 17:30] LABS: Band Neutrophils % 3 %; Neutrophils % (M) 40 %; Nucleated Red Blood Cells 0 /100 WBC (0-0); Total Cells Counted 100
[2024-05-09] MEDS: SODIUM CHLORIDE 0.9% 1,500 ML IV STA (17:58)
[2024-05-09] MEDS: ONDANSETRON 4 MG/2 ML VIAL IVP STA (18:01)
[2024-05-09 20:15] VITALS: BP 120/86; PULSE 80; RESP 18
== END 2024-05-09 20:15 | disposition home or self-care (01) ==
LOC: EC 15:05
DX: R53.1 Weakness (principal); D70.9 Neutropenia, unspecified; C19 Malignant neoplasm of rectosigmoid junction; F17.290 Nicotine dependence, other tobacco product, uncomplicated
CPT/HCPCS: 36415; 93005; 80053; 83690; 83735; 85025; 71046; 99285; 96374; 96375; 96361; J2405; J1642